=== PATIENT | female | born 1940 | race Caucasian/White ===

== ENCOUNTER 2018-05-31 12:12 | Inpatient (IN) ==
[2018-05-31] MEDS ORDERED: Ipratropium/Albuterol Neb 3 ML IH ONE (12:42)
[2018-05-31] MEDS ORDERED: predniSONE 20 MG TABLET PO ONE (12:42)
[2018-05-31] MEDS ORDERED: Albuterol 2.5 MG/3 ML NEBULIZER IH ONE (12:42)
[2018-05-31] MEDS ORDERED: Isovue-370 500 ML INFUS..BTL IV ONE (12:43)
--- NOTE | 2018-05-31 12:52 | Emergency Department Note ---
Disposition Clinical Impression: Elevated troponin, Pulmonary artery hypertension Traumatic compression fracture of T8 thoracic vertebra Qualifiers: Encounter type: initial encounter Fracture type: closed Qualified Code(s): S22.060A - Wedge compression fracture of T7-T8 vertebra, initial encounter for closed fracture COPD (chronic obstructive pulmonary disease) Qualifiers: COPD type: emphysema Emphysema type: centrilobular Qualified Code(s): J43.2 - Centrilobular emphysema Disposition: Admitted As Inpatient Condition: Fair Referrals: Louie Gray MD [Primary Care Provider] - Forms: ED Satisfaction Letter, Work/School Release Time of Disposition: 15:52 General Adult HPI - General Chief complaint: ED General Medical Stated complaint: fatigue Time Seen by Provider: 05/31/18 12:24 Source: patient Mode of arrival: ambulatory Limitations: no limitations - History of Present Illness HPI Narrative: This is a 77-year-old female with a long history of smoking but no diagnosis of COPD who comes to the emergency department stating that she has felt weak and has had a persistent nonproductive cough for the last 4 weeks. She has been evaluated at other hospitals, and most recently was admitted for left lower lobe pneumonia. In spite of 3 courses of antibiotics, she has not improved. She states that she has temporary relief of dyspnea on exertion after use of al buterol. Pain Scale: 0 - Related Data Allergies Allergy/AdvReac Type Severity Reaction Status Date / Time No Known Allergies Allergy Verified 05/31/18 12:20 All systems ED: reviewed and negative except as stated. Constitutional: Reports: weakness Cardiovascular: Reports: dyspnea on exertion Respiratory: Reports: cough Past Medical History - Past Medical History Medical history: Reports: hypertension Psychiatric history: Reports: no psych history - Social History Smoking Status: Current every day smoker Alcohol use: Reports: none Drug use: Reports: none Physical Exam - General Limitations: no limitations General appearance: alert, in no apparent distress - Head Head exam: atraumatic, normocephalic, normal inspection - Eye Eye exam: Present: normal appearance, PERRL, EOMI - Chest Chest inspection: Present: normal inspection, symmetric chest wall rise - Respiratory Respiratory exam: Present: other (There are clear apical breath sounds with diminished bibasilar breath sounds). Absent: respiratory distress, wheezes - Cardiovascular Cardiovascular exam: Present: regular rate, normal rhythm, normal heart sounds - Abdominal Exam Abdominal exam: Present: soft, Non-Tender. Absent: tenderness, distention, guar ding, rebound, rigidity - Extremities Exam Extremities exam: Present: normal inspection, full ROM. Absent: tenderness, pedal edema - Neurological Exam Neurological exam: Present: alert, oriented X3, CN II-XII intact. Absent: motor sensory deficit - Psychiatric Psychiatric exam: Present: normal affect, normal mood - Skin Skin exam: Present: warm, dry, intact, normal color Course Course Narrative: This is a 77-year-old female with generalized weakness and a persistent cough. She was previously diagnosed with a left lower lobe pneumonia, I am concerned for more serious etiology of her illness. Vital Signs Temperature 97.7 F 05/31/18 12:14 Respiratory Rate 18 05/31/18 12:14 Blood Pressure 89/60 05/31/18 12:14 Temperature 97.7 F 05/31/18 12:26 Pulse Rate 85 05/31/18 15:03 Respiratory Rate 18 05/31/18 15:03 Blood Pressure 138/91 05/31/18 15:03 O2 Sat by Pulse Oximetry 99 05/31/18 15:03 Oxygen Delivery Oxygen Delivery Nasal Cannula Medical Decision Making - [facility] Narrative Medical decision making narrative: This is a 77-year-old female with multiple problems on her evaluation, including troponin elevation appropriate for continued evaluation, renal insufficiency, subacute to acute T8 compression fracture, COPD, bilateral aspiration pneumonia, and pulmonary artery hypertension. Ampicillin/sulbactam was ordered for treatment of aspiration pneumonia, along with IV fluid Bronchodilators and prednisone were given for COPD I discussed her case with the on-call hospitalist, who accepted her for admission. - Lab Data Lab results reviewed: Yes I reviewed the patient's lab results. Lab results narrative: CBC was unremarkable BMP showed hyponatremia at 132 and creatinine elevated at 2.08 Lactate was elevated at 3.0 Troponin was elevated at 0.19 Result diagrams: 05/31/18 12:49 05/31/18 12:49 Lab Results 05/31/18 05/31/18 05/31/18 Range/Units 12:49 12:49 12:49 WBC 10.0 (4.3-11.1) K/mcL RBC 3.44 L (3.82-4.97) M/mcL Hgb 11.5 (11.5-15.4) g/dL Hct 35.8 (35.3-44.9) % MCV 104.1 H (83.0-100.0) fL MCH 33.4 H (28.0-33.3) pg MCHC 32.1 (31.6-35.5) g/dL RDW 14.7 H (11.5-14.5) % Plt Count 356 (140-400) K/mcL MPV 9.0 L (9.4-12.4) fL Immature Gran % 0.5 (0-4) % Seg Neutrophils % 80.2 % Lymphocytes % 11.5 % Monocytes % 6.0 % Eosinophils % 1.5 % Basophils % 0.3 % Neutrophils # 8.0 (1.6-8.9) K/mcL Lymphocytes # 1.2 (0.6-4.6) K/mcL Monocytes # 0.6 (0.0-1.3) K/mcL Eosinophils # 0.2 (0.0-0.6) K/mcL Basophils # 0.0 (0.0-0.2) K/mcL Sodium 132 L (136-145) mEq/L Potassium 4.0 (3.5-5.1) mEq/L Chloride 95 L (98-107) mEq/L Carbon Dioxide 24 (23-29) mEq/L BUN 22 (8-23) mg/dL Creatinine 2.08 H (0.60-1.20) mg/dL Est GFR ( Amer) 28 L (> 60) Est GFR (Non-Af Amer) 23 L (> 60) BUN/Creatinine Ratio 11 (6-26) Glucose 130 H (70-105) mg/dL Calculated Osmolality 279 L (280-300) Lactic Acid 3.0 H (0.5-2.2) mmol/L Calcium 8.9 (8.6-10.3) mg/dL Troponin I 0.19 H* (< 0.04) ng/mL - Radiology Data Radiology results reviewed: Yes I reviewed the patient's radiology results. CT chest was interpreted as showing mid esophageal distention, mild COPD, bibasilar opacities with possible aspiration pneumonia, severe pulmonary artery hypertension, subtle T6 but moderate T8 vertebral compression fractures - EKG Data EKG #1 EKG attestation: Yes I reviewed and interpreted this EKG. EKG results narrative: ECG shows sinus rhythm, 88 bpm, normal intervals, normal axis, normal ST segments, T-wave inversions in 3 and V3 Critical Care Time Critical Care Time: Yes Total Critical Care Time: 30 Attestation: 30 minutes of critical care time was invested independent of other separately billable procedures
[2018-05-31 13:09] LABS: Basophils % 0.3 %; Eosinophils # 0.2 K/mcL (0.0-0.6); Eosinophils % 1.5 %; Hematocrit 35.8 % (35.3-44.9); Hemoglobin 11.5 g/dL (11.5-15.4); Immature Granulocytes % 0.5 % (0-4); Lymphocytes # 1.2 K/mcL (0.6-4.6); Lymphocytes % 11.5 %; Mean Corpuscular HGB Conc 32.1 g/dL (31.6-35.5); Mean Corpuscular Hemoglobin 33.4 pg (28.0-33.3); Mean Corpuscular Volume 104.1 fL (83.0-100.0); Monocytes # 0.6 K/mcL (0.0-1.3); Platelet Count 356 K/mcL (140-400); Red Blood Count 3.44 M/mcL (3.82-4.97); Red Cell Distribution Width 14.7 % (11.5-14.5); Segmented Neutrophils % 80.2 %
[2018-05-31 13:31] LABS: Calcium 8.9 mg/dL (8.6-10.3)
[2018-05-31 13:36] LABS: Troponin I 0.19 ng/mL (< 0.04)
[2018-05-31] MEDS ORDERED: *HR* FentaNYL (PF) 100 MCG/2 ML VIAL IVP ONE (14:49)
[2018-05-31] MEDS ORDERED: Aspirin 325 MG TABLET PO ONE (14:49)
[2018-05-31] MEDS ORDERED: 0.9 % Sodium Chloride 1,000 ML IVC ONE (15:28)
[2018-05-31] MEDS ORDERED: Ampicillin/Sulbactam 1,500 MG in 0.9 % Sodium Chloride Mini Bag 100 ML IVPB ONE (15:29)
[2018-05-31] MEDS ORDERED: Naloxone 0.4 MG/ML INJ IVP PRN (16:39)
[2018-05-31] MEDS ORDERED: Ipratropium/Albuterol Neb 3 ML IH PRN (16:45)
--- NOTE | 2018-05-31 17:31 | Internal Med History&Physical ---
Date of Encounter: 05/31/18 Time of Encounter: 16:00 Internal Medicine - H&P: HPI Chief complaint: Dizziness and fall Admitted From: Home Plans for Post Hospital Care: Home History of present illness: Ms. Tierney is a 77 year old female present to ER for dizziness and fall at home. PMH is significant for HTN, CKD, tabacco abuse. Pt has recent frequent falls. She broken her left arm about 40 days ago and is on sling fixation. Her BP is up and down and sometimes up to over 200 and sometimes low to 60s. This morning pt feels dizziness, weakness and fall again. Pt's daughter checked BP which shows 66/57, HR 104. Pt denies LOC, state hit head slightly. Denies chest pain, nausea/vomiting, or diaphoresis. Pt has SOB at that time but denies SOB when I saw her in ER. Pt denies recent diarrhea or urination symptoms. Pt was treated as [facility] for pneumonia about 1 and half weeks ago, has chronic cough. Pt has chronic esophageal spasm and dysphagia. In the ER, pt had CT chest, which shows chronic aspiration pneumonia, esophageal dilation, and T8 compression fracture. Pt also has elevated troponin and lactate. She was admitted for further management. Past Med Surg Social Fam HX - Past Medical History Medical history: hypertension Psychiatric history: no psych history - Past Surgical History Additional surgical history: back surgery x3 - Social History Smoking Status: Current every day smoker Alcohol use: none Drug use: none - Family History Mother History Unknown: Yes Internal Medicine - H&P: Meds Allergy/AdvReac Type Severity Reaction Status Date / Time No Known Allergies Allergy Verified 05/31/18 12:20 All Systems PM: A 10-system review of systems was performed and is negative for pertinent findings except as documented above in the HPI. - Constitutional Vitals: Temp Pulse Resp BP Pulse Ox 97.7 F 81 20 159/101 91 05/31/18 12:26 05/31/18 16:31 05/31/18 16:31 05/31/18 16:31 05/31/18 16:31 General appearance: Present: A&O X 3, no acute distress, answers questions appropriately Exam: in NAD - Head Head exam: Present: atraumatic, normocephalic - Eye Eye exam: Present: PERRL, conjuntiva pink, sclera anicteric Pupils: Present: PERRL - Neck Neck exam general surgery: Present: supple, trachea midline. Absent: lymphadenopathy - Respiratory Respiratory exam: Present: CTAB, wheezes (Trace wheezes on right lung base). Absent: accessory muscle use, rales, rhonchi - Cardiovascular Cardiovascular exam: Present: RRR, +S1, +S2. Absent: diastolic murmur, gallop, rubs, systolic murmur - GI/Abdominal GI/Abdominal exam: Present: normal bowel sounds, soft, no peritoneal signs. Absent: distended, tenderness - Extremities Exam Extremities exam: Present: warm, radial pulses palpable and symmetrical. Absent: calf tenderness, cyanotic, pedal edema Additional comments: Left arm on sling fixation. - Neurological Exam Neurological exam: Present: CN II-XII intact, oriented X3, no focal deficits. Absent: pronater drift, facial droop, speech deficit - Skin Skin exam: Present: dry, intact Internal Med - H&P Results - Labs CBC & Chem 7: 05/31/18 12:49 05/31/18 12:49 Labs: Short CBC 05/31/18 Range/Units 12:49 WBC 10.0 (4.3-11.1) K/mcL Hgb 11.5 (11.5-15.4) g/dL Hct 35.8 (35.3-44.9) % Plt Count 356 (140-400) K/mcL Neutrophils # 8.0 (1.6-8.9) K/mcL BMP 05/31/18 12:49 Sodium 132 L Potassium 4.0 Chloride 95 L Carbon Dioxide 24 BUN 22 Creatinine 2.08 H Glucose 130 H Calcium 8.9 Cardiac Enzymes 05/31/18 Range/Units 12:49 Troponin I 0.19 H* (< 0.04) ng/mL - Impressions ITS Impressions Chest CT 05/31/18 12:43 IMPRESSION: 1. Nonspecific distention of the proximal to mid esophagus which could relate to dysmotility or possible nonvisualized mid esophageal stricture. This could be further evaluated barium esophagram. 2. Mild COPD with basilar predominant significant chronic bronchitis and mild bronchiectasis. Bibasilar opacities which may represent chronic aspiration pneumonitis with developing fibrosis. 3. Severe pulmonary artery hypertension. 4. Aortic and coronary atherosclerosis. 5. Indeterminate 3 mm ground-glass nodule of the right upper lobe, see recommendations. 6. Subtle T6 and moderate T8 vertebral compression fractures which may be acute versus subacute in nature. The T8 body demonstrates 2 mm posterior cortical displacement with no significant canal stenosis. 7. At the posterior midline aspect of the T10 vertebral body there is an ossified body which may relate to calcification of a disc extrusion. This results in mild canal stenosis. RECOMMENDATIONS: Fleischner Society guidelines for follow-up and management of incidentally detected subsolid pulmonary nodules: Solitary ground glass nodule < 6 mm - No routine follow-up. > than or equal to 6 mm - CT at 6-12 months to confirm persistence, then CT every 2 years until 5 years. - Low risk patients include individuals with minimal or absent history of smoking and other known risk factors. - High risk patients include individuals with a history or smoking or known risk factors. Radiology 2017 http://pubs.rsna.org/doi/full/10.1148/radiol.[email or web address] D/ / 05/31/2018 14:37:58 Heath Monroy MD / carl Interpreting Provider: Heath Monroy MD - Assessment and plan (1) Aspiration pneumonia Current Visit: Yes Status: Acute Assessment and plan: CT shows chronic aspiration pneumonia. Possibly due to dysphagia. - Keep NPO at this point. IVF to maintain hydration. - Swallow evaluation, may need barium swallow test. - Cont unasyn at this point. May consider switch to po abx if blood culture negative. Qualifiers: Aspiration pneumonia type: unspecified Laterality: bilateral Lung location: unspecified part of lung Qualified Code(s): J69.0 - Pneumonitis due to inhalation of food and vomit (2) Dysphagia Current Visit: Yes Status: Acute Assessment and plan: Pt may have esophageal stenosis. Will have swallow evaluation and consult GI in AM. Qualifiers: Dysphagia type: esophageal phase Qualified Code(s): R13.10 - Dysphagia, unspecified (3) Near syncope Current Visit: Yes Status: Acute Assessment and plan: Pt has near syncope with low BP. CT chest suspect PAH. - Cont cardiac monitoring. - Echo, duplex carotid - Orthostatic vitals - Hold all HTN meds at this point, hydralazine iv PRN. (4) CKD (chronic kidney disease) Current Visit: Yes Status: Acute Assessment and plan: No old chart to show the baseline. CR 2.08, avoid nephrotoxic medications, closely monitor renal function. Qualifiers: Chronic kidney disease stage: stage 3 (moderate) Qualified Code(s): N18.3 - Chronic kidney disease, stage 3 (moderate) (5) Elevated lactic acid level Current Visit: Yes Status: Acute Assessment and plan: Pt has nosigns of sepsis, no fever or leukocytosis, no tachycardia. On unasyn for aspiration pneumonia now. - Cont IVF - Repeat lactate in 6 hours. (6) COPD (chronic obstructive pulmonary disease) Current Visit: Yes Status: Acute Assessment and plan: CT chest shows COPD, pt denies hx of COPD, long time smoker. - Has trace wheezes on right side. - Place pt on Duoneb scheduled and PRN Qualifiers: COPD type: emphysema Emphysema type: unspecified Qualified Code(s): J43.9 - Emphysema, unspecified (7) Elevated troponin Current Visit: Yes Status: Acute Assessment and plan: Denies chest pain, has CKD, possibly demend ischemia. - Cont cardiac monitoring. - Track 3 sets of troponin - Consult cardio for further management. (8) Pulmonary artery hypertension Current Visit: Yes Status: Acute Assessment and plan: Per CT chest, will check Echo. (9) Traumatic compression fracture of T8 thoracic vertebra Current Visit: Yes Status: Acute Assessment and plan: Pt denies significant pain, will consult ortho/spinal surgery. Qualifiers: Encounter type: initial encounter Fracture type: closed Qualified Code(s): S22.060A - Wedge compression fracture of T7-T8 vertebra, initial encounter for closed fracture (10) Tobacco abuse Current Visit: Yes Status: Acute Assessment and plan: Smoking cessation education done. Pt refuse nicotine patch. (11) DVT prophylaxis Current Visit: Yes Status: Acute Assessment and plan: Heparin SC (12) Fall Current Visit: Yes Status: Acute Assessment and plan: Seems due to near syncope. - Syncope workup as above - CT head and neck stat as ER physician didn't do them in ER - XR of left arm to r/o new fracture/displacement. Qualifiers: Encounter type: initial encounter Qualified Code(s): W19.XXXA - Unspecified fall, initial encounter - Time Spent With Patient Total time spent is greater than 50% in coordination of care (as documented) at patient's floor/unit and/or counseling patient: 30 min 25 - 35 minutes
[2018-05-31] MEDS: 0.9 % Sodium Chloride 1,000 ML IVC SCH (18:51)
[2018-05-31] MEDS: *HR* Heparin 5,000 UNIT/ML VIAL SQ SCH (20:20)
--- NOTE | 2018-05-31 20:35 | Event Note ---
Date of Encounter: 05/31/18 Time of Encounter: 20:30 Alerted by pts. Admitting physician, Dr. Solorio, of pts. fall today resulting in pt. striking her head w/recommendation to await results of head CT to assess for any possible intracranial bleeding or abnormality. CT of the head shows no acute intracranial abnormality and no acute cervical spine fracture. X-ray of the left humerus shows left proximal humerus fracture with separation of fracture fragments and no acute osseous abnormality of the left elbow. Pt. and VS to be monitored closely for signs of pain, tachycardia, tachypnea, HTN overnight. Will order interventions as warranted.
[2018-05-31] MEDS ORDERED: Ampicillin/Sulbactam 1,500 MG in 0.9 % Sodium Chloride Mini Bag 100 ML IVPB SCH (22:00)
[2018-05-31] MEDS: Ipratropium/Albuterol Neb 3 ML IH SCH (22:16)
[2018-06-01 01:30] LABS: Basophils % 0.1 %; Hematocrit 32.1 % (35.3-44.9); Hemoglobin 10.5 g/dL (11.5-15.4); Immature Granulocytes % 0.3 % (0-4); Lymphocytes # 0.8 K/mcL (0.6-4.6); Lymphocytes % 11.2 %; Mean Corpuscular HGB Conc 32.7 g/dL (31.6-35.5); Mean Corpuscular Hemoglobin 33.7 pg (28.0-33.3); Mean Corpuscular Volume 102.9 fL (83.0-100.0); Mean Platelet Volume 8.8 fL (9.4-12.4); Monocytes # 0.1 K/mcL (0.0-1.3); Monocytes % 1.6 %; Platelet Count 324 K/mcL (140-400); Red Blood Count 3.12 M/mcL (3.82-4.97); Red Cell Distribution Width 14.5 % (11.5-14.5); Segmented Neutrophils % 86.8 %
[2018-06-01 01:53] LABS: Albumin 3.3 g/dL (3.5-5.7); Albumin/Globulin Ratio 1.2 (1.1-2.2); Bilirubin,Total 0.3 mg/dL (0.3-1.0); Calcium 8.3 mg/dL (8.6-10.3); Chol/HDL Ratio 4.4 (0-4.9); Globulin 2.7 g/dL (2.4-3.5); Phosphorous 4.1 mg/dL (2.7-4.5); Potassium 3.6 mEq/L (3.5-5.1)
[2018-06-01 02:15] LABS: Folate 5.2 ng/mL (3.0-16.0)
[2018-06-01] MEDS: Ipratropium/Albuterol Neb 3 ML IH SCH ×4 (04:30→21:57)
[2018-06-01] MEDS: *HR* Heparin 5,000 UNIT/ML VIAL SQ SCH ×2 (06:01→16:57)
[2018-06-01] MEDS: Ampicillin/Sulbactam 1,500 MG in 0.9 % Sodium Chloride Mini Bag 100 ML IVPB SCH ×2 (06:02→11:17)
--- NOTE | 2018-06-01 08:55 | Pain Management Consultation ---
Date of Encounter: 06/01/18 Time of Encounter: 13:36 Assessment and Plan (1) Traumatic compression fracture of T8 thoracic vertebra Current Visit: Yes Status: Acute The patient experienced a fall from standing yesterday and CT scan shows compression deformity of T6 (mild) and T8 (moderate). Recommend the followin. Oral analgesics. 2. Back bracing with TLSO brace. She can wear the brace when up in bed or out of bed. Does not have to wear it while supine or sleeping. 3. Physical therapy/occupational therapy consult to treat pain and ascertain her functional capacity. If the patient can sit on the side of the bed, eat, and ambulate to the bathroom with little pain, there is little need for surgery at this moment. 3. Recent troponin indicates high likelihood of cardiac event which is a further barrier to surgical care at this point. Based on the overall clinical situation, recommend conservative care as noted in 1-3 above. 3A. The patient herself is also initially against surgical care for the broken bone in her spine. She has underwent several larger lumbar spine procedures. I did explain to her that kyphoplasty is a less invasive surgical procedure in terms of surgical manipulation, but the risks are significant. 4. Recommend discharge to rehabilitation center if function is at baseline and pain can be easily controlled with oral analgesics and lifestyle modification, finding a comfortable position. 5. I will have my office add her on to my clinic schedule for follow-up in one to two weeks so that we can monitor her progress. The assessment and plan as outlined above was discussed with the patient and/or family members who expressed understanding and agreement. All questions were answered. Qualifiers: Encounter type: initial encounter Fracture type: closed Qualified Code(s): S22.060A - Wedge compression fracture of T7-T8 vertebra, initial encounter for closed fracture History of Present Illness Chief complaint: back pain HPI: Ms. Tierney is a 77 year old female who experienced a recent fall from standing where she fell backwards and hit her middle back on a hard surface. Since the fall a little over 24 hours ago, the patient has experienced for the first time pain in her middle back between her shoulder blades. She describes the pain as a "sore" sensation that occurs mostly when changing positions. She denies any pain traveling into the front of her chest or into her abdomen or legs. She is able to sleep and drink normally. She is able to cough without pain. She has a history of 3 low back surgeries culminating in lumbar spine fusion. Therefore, she typically has low back pain involving traveling pain into the back sides of both legs. She describes that there is no new pain traveling into her legs at this moment. Past Med Surg Social Fam HX - Past Medical History Medical history: hypertension Additional medical history: Diverticulitis, dysphagia Psychiatric history: no psych history - Past Surgical History Surgical History: cholecystectomy, hysterectomy Additional surgical history: back surgery x3 - Social History Smoking Status: Current every day smoker Packs per day: 1.5 Alcohol use: none Drug use: none - Family History Mother History Unknown: Yes Living Status: Age at : 80 Cause of : CHF Hx Family Cardiac Disorders: Yes (CHF) Father History Unknown: Yes Living Status: Age at : 73 Cause of : CVA Medications and Allergies Amitriptyline [Elavil] 50 mg PO BID 06/01/18 [History] Atenolol [Tenormin] 50 mg PO DAILY 06/01/18 [History] Carvedilol [Coreg] 25 mg PO DAILY 06/01/18 [History] Ferrous Sulfate 325 mg PO BID 06/01/18 [History] Furosemide [Lasix] 40 mg PO DAILY 06/01/18 [History] Gabapentin [Neurontin] 300 mg PO TID 06/01/18 [History] Minocycline HCl 100 mg PO DAILY 06/01/18 [History] Tamsulosin [Flomax] 0.4 mg PO DAILY 06/01/18 [History] Tramadol HCl [Ultram] 50 mg PO Q4H PRN 06/01/18 [History] diazePAM [Valium] 10 mg PO QID 06/01/18 [History] Allergy/AdvReac Type Severity Reaction Status Date / Time No Known Allergies Allergy Verified 05/31/18 12:20 Review of Systems - Constitutional Constitutional ROS IM: no photophobia, no phonophobia, no daytime sleepiness, no fever(s), no stops breathing during sleep - EENT Nose, mouth and throat: no headache(s), no neck pain, no neck trauma - Cardiovascular Cardiovascular ROS: no chest pain, no leg edema, no lightheadedness - Respiratory Respiratory: no pain on inspiration, no pain with cough - Gastrointestinal Gastrointestinal: no abdominal pain, no constipation, no diarrhea, no heartburn - Genitourinary Genitourinary ROS: no difficulty urinating, no flank pain, no urinary hesitancy - Musculoskeletal Musculoskeletal ROS: no muscle weakness, no numbness, no radiating pain into limb, no tingling - Integumentary Integumentary: no erythema, no lesions, no swelling - Neurological Neurological ROS: no abnormal gait, no behavioral changes, no focal weakness, no radicular pain - Psychiatric Psychiatric general: no anxiety, no confusion, no depression - Hematologic/Lymphatic Hematologic/Lymphatic pediatric: no easy bleeding, no easy bruising Physical Exam Initial Vital Signs Temp Resp BP 97.7 F 18 89/60 05/31/18 12:14 05/31/18 12:14 05/31/18 12:14 - Additional Findings EYES:: pupils equal and round, no myosis. SKIN:: Thin skin with areas of ecchymosis CARDIOVASCULAR:: Generalized edema noted in both lower limbs distal to both knees. PULMONARY:: Large airway rhonchi GASTROINTESTINAL:: soft. MUSCULOSKELETAL INSPECTION:: no surgical scarring in thoracic area. There is a well-healed vertical midline incision over the lower lumbar neuraxis. Mild tenderness with palpation of spinous processes in the upper thoracic spine. Mild tenderness increases with percussion of this area. PALPATION:: paraspinous musculature is not tender to deep palpation in the lumbar area bilaterally. NEUROLOGIC SENSATION:: hypesthesia is not noted in lower extremity dermatomes. PSYCHIATRIC:: ORIENTATION:: awake and alert. INSIGHT:: good awareness of illness. AFFECT:: pleasant. Radiology Images Viewed By Me:: 05.31.18 CT chest shows subtle T6 and mild T8 compression fractures. There is a calcified disc protrusion with inferior migration in the midthoracic anterior epidural space. Lab Data:: Troponin I positive yesterday and today. WBC within normal range. Platelets within normal range. Radiology Reports:: 05/31/2018 x-ray of the left humerus shows a displaced fracture. I have reviewed and agree with information documented in the scribed documentation, ROS, patient medications, allergies, medical history, surgical history, social history, and family history. Results - Labs 06/01/18 01:11 06/01/18 01:11 Abnormal lab results RBC 3.12 M/mcL (3.82-4.97) L 06/01/18 01:11 Hgb 10.5 g/dL (11.5-15.4) L 06/01/18 01:11 Hct 32.1 % (35.3-44.9) L 06/01/18 01:11 MCV 102.9 fL (83.0-100.0) H 06/01/18 01:11 MCH 33.7 pg (28.0-33.3) H 06/01/18 01:11 MPV 8.8 fL (9.4-12.4) L 06/01/18 01:11 Sodium 135 mEq/L (136-145) L 06/01/18 01:11 Creatinine 1.38 mg/dL (0.60-1.20) H 06/01/18 01:11 Est GFR ( Amer) 45 (> 60) L 06/01/18 01:11 Est GFR (Non-Af Amer) 37 (> 60) L 06/01/18 01:11 Glucose 127 mg/dL (70-105) H 06/01/18 01:11 POC Glucose 138 mg/dL (70-99) H 06/01/18 01:10 Calcium 8.3 mg/dL (8.6-10.3) L 06/01/18 01:11 Alkaline Phosphatase 114 Units/L (34-104) H 06/01/18 01:11 Troponin I 0.13 ng/mL (< 0.04) H* 06/01/18 01:11 B-Natriuretic Peptide 921 pg/mL (Less than 100) H 06/01/18 01:11 Serum Total Protein 6.0 g/dL (6.4-8.9) L 06/01/18 01:11 Albumin 3.3 g/dL (3.5-5.7) L 06/01/18 01:11 HDL Cholesterol 29 mg/dL (40-59) L 06/01/18 01:11 Diabetes panel 05/31/18 06/01/18 Range/Units 12:49 01:11 Sodium 132 L 135 L (136-145) mEq/L Potassium 4.0 3.6 (3.5-5.1) mEq/L Chloride 95 L 100 (98-107) mEq/L Carbon Dioxide 24 26 (23-29) mEq/L BUN 22 18 (8-23) mg/dL Creatinine 2.08 H 1.38 H (0.60-1.20) mg/dL Glucose 130 H 127 H (70-105) mg/dL Calcium 8.9 8.3 L (8.6-10.3) mg/dL AST 15 (13-39) Units/L ALT 7 (7-52) Units/L Alkaline Phosphatase 114 H (34-104) Units/L Albumin 3.3 L (3.5-5.7) g/dL Triglycerides 90 (< 150) mg/dL HDL Cholesterol 29 L (40-59) mg/dL Calcium panel 05/31/18 06/01/18 Range/Units 12:49 01:11 Calcium 8.9 8.3 L (8.6-10.3) mg/dL Phosphorus 4.1 (2.7-4.5) mg/dL Albumin 3.3 L (3.5-5.7) g/dL Pituitary panel 05/31/18 06/01/18 Range/Units 12:49 01:11 Sodium 132 L 135 L (136-145) mEq/L Potassium 4.0 3.6 (3.5-5.1) mEq/L Chloride 95 L 100 (98-107) mEq/L Carbon Dioxide 24 26 (23-29) mEq/L BUN 22 18 (8-23) mg/dL Creatinine 2.08 H 1.38 H (0.60-1.20) mg/dL Glucose 130 H 127 H (70-105) mg/dL Calcium 8.9 8.3 L (8.6-10.3) mg/dL Adrenal panel 05/31/18 06/01/18 Range/Units 12:49 01:11 Sodium 132 L 135 L (136-145) mEq/L Potassium 4.0 3.6 (3.5-5.1) mEq/L Chloride 95 L 100 (98-107) mEq/L Carbon Dioxide 24 26 (23-29) mEq/L BUN 22 18 (8-23) mg/dL Creatinine 2.08 H 1.38 H (0.60-1.20) mg/dL Glucose 130 H 127 H (70-105) mg/dL Calcium 8.9 8.3 L (8.6-10.3) mg/dL Total Bilirubin 0.3 (0.3-1.0) mg/dL AST 15 (13-39) Units/L ALT 7 (7-52) Units/L Alkaline Phosphatase 114 H (34-104) Units/L Albumin 3.3 L (3.5-5.7) g/dL All other labs normal. Consult Discharge Plan - Plan Referrals: Louie Gray MD [Primary Care Provider] -
[2018-06-01] MEDS: 0.9 % Sodium Chloride 1,000 ML IVC SCH (09:30)
--- NOTE | 2018-06-01 10:17 | Cardiology Consult Note ---
<Ebony Maldonado - Last Filed: 06/01/18 10:57> Date of Encounter: 06/01/18 Time of Encounter: 10:00 Assessment and Plan (1) Near syncope Current Visit: Yes Status: Acute Multiple episodes of near syncope with falls over the past 6-8 weeks. Etiology unclear. Reports initial episode occurred with severely elevated HTN, now with hypotension. BP reportedly 66/57 prior to presentation, initial BP in ED 89/60. CT Chest: esophageal stricture vs. dysmotility; mild COPD, chronic bronchitis, severe PAH, and acute vs. subacute vertebral fx. No arrhythmias noted on telemetry since admission. Check TSH. Agree with IVF, symptoms largely improved. Appears blood pressure now elevated; of note, recent medication change (atenolol--->coreg) at [facility]. Will restart low dose coreg now; closely monitor BP response. Obtain records from [place] including TTE, NST, d/c summary. (2) Elevated troponin Current Visit: Yes Status: Acute Mildly elevated troponin in the setting of near syncope, DELMIS on CKD. Do not suspect ACS. No chest pain. Add low dose BB, asa. Awaiting TTE records. (3) Pulmonary artery hypertension Current Visit: Yes Status: Acute Described on CT of chest. Recent TTE at [facility]; recommend obtaining records now. Will hold off on repeating inpt TTE until results obtained from [place]; order cancelled. (4) CKD (chronic kidney disease) Current Visit: Yes Status: Acute Reported hx of CKD Presented with DELMIS; likely secondary to hypotension. SCr improving, consider Nephrology consult. Discussion w patient/family: The assessment and plan as outlined above was discussed with the patient and/or family members who expressed understanding and agreement. All questions were answered. Thank you for involving us in the care of your patient. Please call with any questions. The patient will be discussed and reviewed with Dr. Gaviria; changes to be made accordingly. History of Present Illness Consult date: 06/01/18 Requesting physician: Humble Thomas Consult reason: Elevated troponin Chief complaint: Dizziness, fall History of present illness: Ms. Tierney is a 77 year old female with PMHx significant for tobacco use, CKD, and tobacco abuse who presented to the ED after fall; patient reports generalized weakness which led to fall. Denies loss of consciousness. She does report dizziness prior to event with low blood pressure over the past 24 hours prior to presentation. Of note, recent fall with left arm fracture, then another fall with admission; at that time, patient reports blood pressure medications were adjusted--atenolol was discontinued and she was then started on Coreg 12.5 mg BID. Blood pressures appear to be labile this admission. Reports holding x2 doses of coreg prior to ED presentation. Of note, patient reports recent normal NST and echocardiogram. Past Med Surg Social Fam HX - Past Medical History Attestation: Yes The following information was validated with the patient. Source: patient Medical history: hypertension Additional medical history: Diverticulitis, dysphagia Psychiatric history: no psych history - Past Surgical History Surgical History: cholecystectomy, hysterectomy Additional surgical history: back surgery x3 - Social History Smoking Status: Current every day smoker Packs per day: 1.5 Alcohol use: none Drug use: none - Family History Mother History Unknown: Yes Living Status: Age at : 80 Cause of : CHF Hx Family Cardiac Disorders: Yes (CHF) Father History Unknown: Yes Living Status: Age at : 73 Cause of : CVA Medications and Allergies Amitriptyline [Elavil] 50 mg PO BID 06/01/18 [History] Carvedilol [Coreg] 12.5 mg PO BID 06/01/18 [History] Ferrous Sulfate 325 mg PO BID 06/01/18 [History] Furosemide [Lasix] 40 mg PO DAILY 06/01/18 [History] Gabapentin [Neurontin] 300 mg PO TID 06/01/18 [History] Minocycline HCl 100 mg PO DAILY 06/01/18 [History] Tamsulosin [Flomax] 0.4 mg PO DAILY 06/01/18 [History] Tramadol HCl [Ultram] 50 mg PO BID PRN 06/01/18 [History] diazePAM [Valium] 5 - 10 mg PO TID PRN 06/01/18 [History] Allergy/AdvReac Type Severity Reaction Status Date / Time No Known Allergies Allergy Verified 05/31/18 12:20 All Systems Review: The remainder of the systems were reviewed and are negative - Cardiovascular Cardiovascular: as per HPI Physical Examination Vital Signs, Last 4 Hours Temp Pulse Resp BP Pulse Ox 06/01/18 09:25 94 06/01/18 06:47 97.6 F 82 19 148/74 94 General: Conversant, No Apparent Distress HEENT: Atraumatic, Normocephaly, Mucus Membranes Moist Neck: No JVD, Normal carotid pulses Cardiac: Reg Rate and Rhythm, Normal S1 and S2, No Murmur Lungs: Normal Breath Sounds, No Wheeze, Rales, Rhonchi Neuro: Alert and responsive, No focal deficits noted Abdomen: Soft, Non-Tender Skin: No rashes noted on visualized skin Musculoskeletal: No Chest Wall Tenderness Extremities: No Clubbing, No Cyanosis, No Edema, Normal Pulses Results 06/01/18 01:11 06/01/18 01:11 Lab Results 05/31/18 05/31/18 05/31/18 12:49 12:49 19:22 WBC 10.0 Hgb 11.5 Hct 35.8 Plt Count 356 Sodium 132 L Potassium 4.0 Chloride 95 L Carbon Dioxide 24 BUN 22 Creatinine 2.08 H Glucose 130 H Calcium 8.9 Magnesium Total Bilirubin AST ALT Alkaline Phosphatase Troponin I 0.19 H* 0.16 H* B-Natriuretic Peptide 06/01/18 06/01/18 06/01/18 01:11 01:11 01:11 WBC 6.9 Hgb 10.5 L Hct 32.1 L Plt Count 324 Sodium 135 L Potassium 3.6 Chloride 100 Carbon Dioxide 26 BUN 18 Creatinine 1.38 H Glucose 127 H Calcium 8.3 L Magnesium 2.0 Total Bilirubin 0.3 AST 15 ALT 7 Alkaline Phosphatase 114 H Troponin I 0.13 H* B-Natriuretic Peptide 06/01/18 01:11 WBC Hgb Hct Plt Count Sodium Potassium Chloride Carbon Dioxide BUN Creatinine Glucose Calcium Magnesium Total Bilirubin AST ALT Alkaline Phosphatase Troponin I B-Natriuretic Peptide 921 H Active Medications Acetaminophen (Tylenol) 650 mg PO Q6HR PRN PRN Reason: Mild Pain/Fever Stop: 11/30/18 16:40 Albuterol/Ipratropium (Duoneb) 3 ml IH [id number] SUZIE Stop: 11/30/18 22:01 Last Admin: 06/01/18 04:30 Dose: 3 ml Albuterol/Ipratropium (Duoneb) 3 ml IH [id number] PRN PRN Reason: Shortness Of Breath/Wheezing Stop: 11/30/18 16:46 Heparin Sodium (Porcine) (Heparin) 5,000 unit SQ Q12HCO SUZIE Stop: 11/30/18 18:01 Last Admin: 06/01/18 06:01 Dose: 5,000 unit Hydralazine HCl (Hydralazine) 5 mg IVP Q6HR PRN PRN Reason: Hypertension Stop: 11/30/18 17:46 Last Admin: 05/31/18 18:51 Dose: 5 mg Sodium Chloride (0.9 % Sodium Chloride) 1,000 mls @ 80 mls/hr IVC .[id number] SUZIE Stop: 06/01/18 17:44 Last Admin: 06/01/18 09:30 Dose: 80 mls/hr Ampicillin Sodium/Sulbactam Sodium 1,500 mg/ Sodium Chloride 100 mls @ 200 mls/hr IVPB Q6H SUZIE Stop: 12/01/18 06:01 Last Infusion: 06/01/18 07:43 Dose: Infused Naloxone HCl (Narcan) 0.4 mg IVP Q2MIN PRN PRN Reason: SEE COMMENTS Stop: 11/30/18 16:40 - Imaging and Cardiology Other Results: 12 hour tele: avg HR=76 SR. No events noted. - EKG Interpretation EKG results cardiology: personally reviewed Consult Discharge Plan - Plan Referrals: Louie Gray MD [Primary Care Provider] - <Teddy Gaviria - Last Filed: 06/01/18 19:04> - Attending Attestation Patient was seen and evaluated independently by me. Findings, assessment and plan were discussed at length with patient, questions answered. Agree with nurse practitioner's documentation. Addition as follows, 77 yo CF ho recent "trip and fall" with LUE fracture, HTN, CKD (? obstructive etiology), COPD. P/w a fall with uncertain near-syncope 6:30am when turning. + arm and back pain. Hypotensive on admission. Chest CT suggests severe PAH. Recent TTE in [facility], f/u Cardiology at [place]. No dynamic ECG changes or event on tele. Trop 0.1-1.2 flat A: mild troponin elevation, type II NSTMI likely hypotensive episodes suspected PAH on CT frequent falls DELMIS on CKD Dysphagia, chronic, EGD pending P: obatain TTE from [facility] will need further w/u if evidence of pumonary hypertension on TTE (eg scleroderma) if arrhythmia on tele, will need event monitor ambulatory BP monitoring Teddy Gaviria MD, PhD Assessment and Plan Discussion w patient/family: The assessment and plan as outlined above was discussed with the patient and/or family members who expressed understanding and agreement. All questions were answered. Thank you for involving us in the care of your patient. Please call with any questions. History of Present Illness History of present illness: Ms. Tierney is a 77 year old female All Systems Review: The remainder of the systems were reviewed and are negative Physical Examination Vital Signs, Last 4 Hours Pulse Pulse Pulse Pulse Resp BP BP 06/01/18 16:15 17 06/01/18 15:42 78 75 82 86 18 171/94 171/94 BP BP Pulse Ox 06/01/18 16:15 94 06/01/18 15:42 168/108 163/132 94 Results 06/01/18 01:11 06/01/18 01:11 Lab Results 05/31/18 06/01/18 06/01/18 19:22 01:11 01:11 WBC 6.9 Hgb 10.5 L Hct 32.1 L Plt Count 324 Sodium Potassium Chloride Carbon Dioxide BUN Creatinine Glucose Calcium Magnesium Total Bilirubin AST ALT Alkaline Phosphatase Troponin I 0.16 H* 0.13 H* B-Natriuretic Peptide TSH 06/01/18 06/01/18 06/01/18 01:11 01:11 13:01 WBC Hgb Hct Plt Count Sodium 135 L Potassium 3.6 Chloride 100 Carbon Dioxide 26 BUN 18 Creatinine 1.38 H Glucose 127 H Calcium 8.3 L Magnesium 2.0 Total Bilirubin 0.3 AST 15 ALT 7 Alkaline Phosphatase 114 H Troponin I B-Natriuretic Peptide 921 H TSH 1.101
--- NOTE | 2018-06-01 10:58 | Gastroenterology Consult Note ---
<Fernando Akins - Last Filed: 06/01/18 10:55> Date of Encounter: 06/01/18 Time of Encounter: 10:30 - Assessment and plan (1) Dysphagia Current Visit: Yes Status: Acute Assessment and plan: Recommend EGD with possible dilation, pending Cardiology workup for her elevated troponin. Patient refuses EGD at this time. Dr. Montes will speak with patient this afternoon. Qualifiers: Dysphagia type: esophageal phase Qualified Code(s): R13.10 - Dysphagia, unspecified (2) Elevated troponin Current Visit: Yes Status: Acute Assessment and plan: Cardiology following. - Time Spent With Patient Total time spent is greater than 50% in coordination of care (as documented) at patient's floor/unit and/or counseling patient: GI History of Present Illness - Data of Consult Patient: new to practice Requesting Physician: Go Wei DO - Consult Narrative Reason for consult: Dysphagia History of present illness: Ms. Tierney is a 77 year old female with PMHx of HTN, CKD, who presented to the ED with c/o dizziness and fall at home. Her BP is up and down and sometimes up to over 200 and sometimes low to 60s. The morning of admission the pt felt dizziness, weakness and fell again. Pt's daughter checked BP 66/57, HR 104. Pt denied LOC, state hit head slightly. Denies chest pain, nausea/vomiting, or diaphoresis. Pt was treated as [facility] for pneumonia about 1 and half weeks ago, has chronic cough. Pt has chronic esophageal spasm and dysphagia, and has had several EGDs completed at [facility]. She states she feels solid food and occasionally medication get stuck in her lower esophagus, which has not worsened or improved over the past "couple of years". In the ER, pt had CT chest, which shows chronic aspiration pneumonia, esophageal dilation, and T8 compression fracture. Hgb on admission was 11.5 and this AM Hgb 10.5. We were consulted to evaluate her dysphagia. Procedures: EGD 3-4 years ago at [facility] showed esophageal spasm per patient report. NSAIDs: None Anticoagulation: None Past Med Surg Social Fam HX - Past Medical History Medical history: hypertension Additional medical history: Diverticulitis, dysphagia Psychiatric history: no psych history - Past Surgical History Surgical History: cholecystectomy, hysterectomy Additional surgical history: back surgery x3 - Social History Smoking Status: Current every day smoker Packs per day: 1.5 Alcohol use: none Drug use: none - Family History Mother History Unknown: Yes Living Status: Age at : 80 Cause of : CHF Hx Family Cardiac Disorders: Yes (CHF) Father History Unknown: Yes Living Status: Age at : 73 Cause of : CVA - Gastrointestinal Gastrointestinal: Present: as per HPI - Constitutional Constitutional: as per HPI - EENT Eyes: as per HPI Ears: Present: as per HPI Nose, mouth and throat: Present: as per HPI - Cardiovascular Cardiovascular ROS: Present: as per HPI - Respiratory Respiratory IM: Present: as per HPI - Genitourinary Genitourinary: Absent: change in color, Urinary frequency - Neurological ROS Neurological GI: Present: as per HPI - Hematologic/Lymphatic Hematologic/Lymphatic pediatric: Present: as per HPI - Musculoskeletal Musculoskeletal ROS GI: Present: as per HPI - Integumentary Integumentary GI: Present: as per HPI - Psychiatric ROS Psychiatric GI: Present: as per HPI - Endocrine Endocrine IM: Present: as per HPI - Constitutional Vitals: Temp Pulse Resp BP Pulse Ox 97.6 F 82 19 148/74 94 06/01/18 06:47 06/01/18 06:47 06/01/18 06:47 06/01/18 06:47 06/01/18 09:25 General appearance: Present: cooperative, A&O X 3, no acute distress, answers questions appropriately - Head Head exam: Present: atraumatic, normocephalic - Eye Eye exam: Present: normal appearance, sclera anicteric - ENT ENT exam: Present: mucous membranes dry - Neck Neck exam general surgery: Present: normal inspection, trachea midline - Respiratory Respiratory exam: Present: decreased breath sounds, CTAB. Absent: rales, rhonchi - Cardiovascular Cardiovascular exam: Present: RRR, +S1, +S2 - GI/Abdominal GI/Abdominal exam: Present: soft, no peritoneal signs. Absent: distended, firm, guarding, tenderness - Rectal Rectal exam: Present: deferred - Extremities Exam Extremities exam: Present: warm - Neurological Exam Neurological exam: Present: no focal deficits - Psychiatric Psychiatric exam: Present: normal affect, normal mood - Skin Skin exam: Present: dry, intact, normal color, warm Results - Labs CBC & Chem 7: 06/01/18 01:11 06/01/18 01:11 Labs: Last Result Calcium 8.3 mg/dL (8.6-10.3) L 06/01/18 01:11 Troponin I 0.13 ng/mL (< 0.04) H* 06/01/18 01:11 Triglycerides 90 mg/dL (< 150) 06/01/18 01:11 Vitamin B12 275 pg/mL (250-1100) 06/01/18 01:11 Folate 5.2 ng/mL (3.0-16.0) 06/01/18 01:11 Entire Visit Hgb 10.5 g/dL (11.5-15.4) L 06/01/18 01:11 Hct 32.1 % (35.3-44.9) L 06/01/18 01:11 Total Bilirubin 0.3 mg/dL (0.3-1.0) 06/01/18 01:11 AST 15 Units/L (13-39) 06/01/18 01:11 ALT 7 Units/L (7-52) 06/01/18 01:11 Folate 5.2 ng/mL (3.0-16.0) 06/01/18 01:11 - Impressions Impressions Chest CT 05/31/18 12:43 IMPRESSION: 1. Nonspecific distention of the proximal to mid esophagus which could relate to dysmotility or possible nonvisualized mid esophageal stricture. This could be further evaluated barium esophagram. 2. Mild COPD with basilar predominant significant chronic bronchitis and mild bronchiectasis. Bibasilar opacities which may represent chronic aspiration pneumonitis with developing fibrosis. 3. Severe pulmonary artery hypertension. 4. Aortic and coronary atherosclerosis. 5. Indeterminate 3 mm ground-glass nodule of the right upper lobe, see recommendations. 6. Subtle T6 and moderate T8 vertebral compression fractures which may be acute versus subacute in nature. The T8 body demonstrates 2 mm posterior cortical displacement with no significant canal stenosis. 7. At the posterior midline aspect of the T10 vertebral body there is an ossified body which may relate to calcification of a disc extrusion. This results in mild canal stenosis. RECOMMENDATIONS: Fleischner Society guidelines for follow-up and management of incidentally detected subsolid pulmonary nodules: Solitary ground glass nodule < 6 mm - No routine follow-up. > than or equal to 6 mm - CT at 6-12 months to confirm persistence, then CT every 2 years until 5 years. - Low risk patients include individuals with minimal or absent history of smoking and other known risk factors. - High risk patients include individuals with a history or smoking or known risk factors. Radiology 2017 http://pubs.rsna.org/doi/full/10.1148/radiol.[email or web address] D/ / 05/31/2018 14:37:58 Heath Monroy MD / carl Interpreting Provider: Heath Monroy MD Cervical Spine CT 05/31/18 18:16 IMPRESSION: No acute intracranial abnormality. No acute cervical spine fracture D/ / Jean Marie Dinero / Jean Marie Dinero Interpreting Provider: Jean Marie Dinero Elbow X-Ray 05/31/18 18:16 IMPRESSION: Left proximal humerus fracture with separation of fracture fragments No acute osseous abnormality of the left elbow D/ / Jean Marie Dinero / Jean Marie Dinero Interpreting Provider: Jean Marie Dinero Head CT 05/31/18 18:16 IMPRESSION: No acute intracranial abnormality. No acute cervical spine fracture D/ / Jean Marie Dinero / Jean Marie Dinero Interpreting Provider: Jean Marie Dinero Humerus X-Ray 05/31/18 18:16 IMPRESSION: Left proximal humerus fracture with separation of fracture fragments No acute osseous abnormality of the left elbow D/ / Jean Marie Dinero / Jean Marie Dinero Interpreting Provider: Jean Marie Dinero Consult Discharge Plan - Plan Referrals: Louie Gray MD [Primary Care Provider] - <Kike Montes - Last Filed: 06/01/18 16:31> Time of Encounter: 15:00 - Time Spent With Patient Total time spent is greater than 50% in coordination of care (as documented) at patient's floor/unit and/or counseling patient: GI History of Present Illness - Data of Consult Requesting Physician: Go Wei DO - Consult Narrative History of present illness: Ms. Tierney is a 77 year old female - Constitutional Vitals: Temp Pulse Resp BP Pulse Ox 97.6 F 75 18 171/94 94 06/01/18 06:47 06/01/18 15:42 06/01/18 15:42 06/01/18 15:42 06/01/18 15:42 Results - Labs CBC & Chem 7: 06/01/18 01:11 06/01/18 01:11 Labs: Last Result Calcium 8.3 mg/dL (8.6-10.3) L 06/01/18 01:11 Troponin I 0.13 ng/mL (< 0.04) H* 06/01/18 01:11 Triglycerides 90 mg/dL (< 150) 06/01/18 01:11 Vitamin B12 275 pg/mL (250-1100) 06/01/18 01:11 Folate 5.2 ng/mL (3.0-16.0) 06/01/18 01:11 Entire Visit Hgb 10.5 g/dL (11.5-15.4) L 06/01/18 01:11 Hct 32.1 % (35.3-44.9) L 06/01/18 01:11 Total Bilirubin 0.3 mg/dL (0.3-1.0) 06/01/18 01:11 AST 15 Units/L (13-39) 06/01/18 01:11 ALT 7 Units/L (7-52) 06/01/18 01:11 Folate 5.2 ng/mL (3.0-16.0) 06/01/18 01:11 - Impressions Impressions Cervical Spine CT 05/31/18 18:16 IMPRESSION: No acute intracranial abnormality. No acute cervical spine fracture D/ / Jean Marie Dinero / Jean Marie Dinero Interpreting Provider: Jean Marie Dinero Elbow X-Ray 05/31/18 18:16 IMPRESSION: Left proximal humerus fracture with separation of fracture fragments No acute osseous abnormality of the left elbow D/ / Jean Marie Dinero / Jean Marie Dinero Interpreting Provider: Jean Marie Dinero Head CT 05/31/18 18:16 IMPRESSION: No acute intracranial abnormality. No acute cervical spine fracture D/ / Jean Marie Dinero / Jean Marie Dinero Interpreting Provider: Jean Marie Dinero Humerus X-Ray 05/31/18 18:16 IMPRESSION: Left proximal humerus fracture with separation of fracture fragments No acute osseous abnormality of the left elbow D/ / Jean Marie Dinero / Jean Marie Dinero Interpreting Provider: Jean Marie Dinero Videofluoroscopic Swallow 06/01/18 14:00 IMPRESSION: No aspiration or penetration was identified. There is prominence of the cricopharyngeal muscle along the posterior aspect of the proximal cervical esophagus causing esophageal narrowing. Please see separate speech pathology report for full discussion of findings and recommendations. D/ / Greg Mora MD / Greg Mora MD Interpreting Provider: Greg Mora MD - Attending Attestation I have personally performed a face to face evaluation on this patient. I have reviewed and agree with the care plan. History and Exam by me shows: Pt seen, no abd pain . O/E Abd soft . A: Pt with dysphagia with abn CT of lower esophagus. Rec: EGD with poss dilation. Spoke with Dr Gaviria , no immediate w/u for elevated troponin.
[2018-06-01] MEDS: Aspirin Enteric Coated 81 MG Tablet PO SCH (11:17)
[2018-06-01] MEDS: Acetaminophen 325 MG TABLET PO PRN (11:17)
--- NOTE | 2018-06-01 16:02 | Internal Med Progress Note ---
Hospitalist Progress Note - Encounter Date of Encounter: 06/01/18 Time of Encounter: 09:00 - Subjective Interval History: Pt feels better, denies dizziness, nausea, or vomiting. Chronic cough about the same. No sob/cp. - Exam Vitals: Temp Pulse Resp BP Pulse Ox 97.6 F 75 18 171/94 94 06/01/18 06:47 06/01/18 15:42 06/01/18 15:42 06/01/18 15:42 06/01/18 15:42 Exam: AAO x 3, in NAD HEENT: NC/AT, PERRL Neck: Supple, no JVD Lungs: CTA b/l, scattered wheezes b/l Heart: S1S2, RRR Abd: Soft, NT, BS normal Ext: No pedal edema Neuro: AAO x 3, no focal deficit. - Assessment and Plan (1) Aspiration pneumonia Current Visit: Yes Status: Acute Assessment and Plan: CT shows chronic aspiration pneumonia. Possibly due to dysphagia. - Change to regular diet per swallow evaluation.. - Her aspiration pneumonia is chronic, has recent admission to [facility], will cont her discharge abx minocyclin po to finish the scheduled dose. Symptomatic treatment for wheezing and cough. (2) Dysphagia Current Visit: Yes Status: Acute Assessment and Plan: Pt may have esophageal stenosis. GI consult appreciated, will follow recommendations. (3) Near syncope Current Visit: Yes Status: Acute Assessment and Plan: Pt has near syncope with low BP. CT chest suspect PAH. - Cont cardiac monitoring. - Will obtain echofrom [facility], duplex carotid - Orthostatic vitals - Gradually start HTN med, on low dose Coreg now, hydralazine iv PRN. (4) CKD (chronic kidney disease) Current Visit: Yes Status: Acute Assessment and Plan: No old chart to show the baseline. Improved renal function. Cont IVF (decrease rate as diet resumed). Avoid nephrotoxic medications, closely monitor renal function. (5) Elevated lactic acid level Current Visit: Yes Status: Acute Assessment and Plan: Resolved (6) COPD (chronic obstructive pulmonary disease) Current Visit: Yes Status: Acute Assessment and Plan: CT chest shows COPD, pt denies hx of COPD, long time smoker. - Has trace wheezes. - Cont Duoneb scheduled and PRN (7) Elevated troponin Current Visit: Yes Status: Acute Assessment and Plan: Denies chest pain, has CKD, possibly demend ischemia. - Cont cardiac monitoring. - 3 sets of troponin 0.19-0.16-0.13 - Appreciate cardio consult. (8) Pulmonary artery hypertension Current Visit: Yes Status: Acute Assessment and Plan: Per CT chest, will obtain recent Echo from [facility]. (9) Traumatic compression fracture of T8 thoracic vertebra Current Visit: Yes Status: Acute Assessment and Plan: Pt denies significant pain, ortho/spinal surgery on case. (10) Tobacco abuse Current Visit: Yes Status: Acute Assessment and Plan: Smoking cessation education done. Pt refuse nicotine patch. (11) DVT prophylaxis Current Visit: Yes Status: Acute Assessment and Plan: Heparin SC (12) Fall Current Visit: Yes Status: Acute Assessment and Plan: Seems due to near syncope. - Syncope workup as above - CT head and neck negative - Has old left arm fracture and was treated by Dr Reese as outpatient, XR repeated, will consult Dr Reese to see if there is any changes. - Time Spent with Patient Total time spent is greater than 50% in coordination of care (as documented) at patient's floor/unit and/or counseling patient: 30 min 25 - 35 minutes Plan of Care Discussed with: patient Internal Medicine: Result - Labs CBC & Chem 7: 06/01/18 01:11 06/01/18 01:11 Labs: Short CBC 06/01/18 Range/Units 01:11 WBC 6.9 (4.3-11.1) K/mcL Hgb 10.5 L (11.5-15.4) g/dL Hct 32.1 L (35.3-44.9) % Plt Count 324 (140-400) K/mcL Neutrophils # 6.0 (1.6-8.9) K/mcL BMP 06/01/18 01:11 Sodium 135 L Potassium 3.6 Chloride 100 Carbon Dioxide 26 BUN 18 Creatinine 1.38 H Glucose 127 H Calcium 8.3 L Cardiac Enzymes 05/31/18 06/01/18 Range/Units 19:22 01:11 Troponin I 0.16 H* 0.13 H* (< 0.04) ng/mL Liver Function 06/01/18 Range/Units 01:11 Total Bilirubin 0.3 (0.3-1.0) mg/dL AST 15 (13-39) Units/L ALT 7 (7-52) Units/L Alkaline Phosphatase 114 H (34-104) Units/L Albumin 3.3 L (3.5-5.7) g/dL - Impressions Impressions Cervical Spine CT 05/31/18 18:16 IMPRESSION: No acute intracranial abnormality. No acute cervical spine fracture D/ / Jean Marie Dinero / Jean Marie Dinero Interpreting Provider: Jean Marie Dinero Elbow X-Ray 05/31/18 18:16 IMPRESSION: Left proximal humerus fracture with separation of fracture fragments No acute osseous abnormality of the left elbow D/ / Jean Marie Dinero / Jean Marie Dinero Interpreting Provider: Jean Marie Dinero Head CT 05/31/18 18:16 IMPRESSION: No acute intracranial abnormality. No acute cervical spine fracture D/ / Jean Marie Dinero / Jean Marie Dinero Interpreting Provider: Jean Marie Dinero Humerus X-Ray 05/31/18 18:16 IMPRESSION: Left proximal humerus fracture with separation of fracture fragments No acute osseous abnormality of the left elbow D/ / Jean Marie Dinero / Jean Marie Dinero Interpreting Provider: Jean Marie Dinero Videofluoroscopic Swallow 06/01/18 14:00 IMPRESSION: No aspiration or penetration was identified. There is prominence of the cricopharyngeal muscle along the posterior aspect of the proximal cervical esophagus causing esophageal narrowing. Please see separate speech pathology report for full discussion of findings and recommendations. D/ / Greg Mora MD / Greg Mora MD Interpreting Provider: Greg Mora MD Consult Discharge Plan - Plan Referrals: Louie Gray MD [Primary Care Provider] - (1) Aspiration pneumonia Qualifiers: Aspiration pneumonia type: unspecified Laterality: bilateral Lung location: unspecified part of lung Qualified Code(s): J69.0 - Pneumonitis due to inhalation of food and vomit (2) Dysphagia Qualifiers: Dysphagia type: esophageal phase Qualified Code(s): R13.10 - Dysphagia, unspecified (4) CKD (chronic kidney disease) Qualifiers: Chronic kidney disease stage: stage 3 (moderate) Qualified Code(s): N18.3 - Chronic kidney disease, stage 3 (moderate) (6) COPD (chronic obstructive pulmonary disease) Qualifiers: COPD type: emphysema Emphysema type: unspecified Qualified Code(s): J43.9 - Emphysema, unspecified (9) Traumatic compression fracture of T8 thoracic vertebra Qualifiers: Encounter type: initial encounter Fracture type: closed Qualified Code(s): S22.060A - Wedge compression fracture of T7-T8 vertebra, initial encounter for closed fracture (12) Fall Qualifiers: Encounter type: initial encounter Qualified Code(s): W19.XXXA - Unspecified fall, initial encounter
[2018-06-01] MEDS ORDERED: 0.9 % Sodium Chloride 1,000 ML IVC SCH (16:10)
--- NOTE | 2018-06-01 20:50 | Orthopedic Consult Note ---
Date of Encounter: 06/01/18 Time of Encounter: 20:44 History of Present Illness Chief complaint: Left shoulder pain HPI: Ms. Tierney is a 77 year old gioly-sdee-oxdqfoxm female who I had seen and treated on April [id number] for a left proximal humerus fracture that had occurred in a fall on April 16. The patient was noted to have a nondisplaced proximal humeral metadiaphyseal fracture. She was treated with a sling and conservative measures. The patient was seen in follow-up on 05/15/2018. At that time recheck x-rays revealed some further comminution and mild offset of the fracture fragment but excellent new bone formation and healing. The patient was scheduled to see me in the office today, unfortunately she fell again yesterday and reinjured her left shoulder area. She had x-rays taken and fracture was noted. Question of whether this was an old or new injury was entertained. The patient was feeling much better prior to the fall. She has had increased pain and swelling since the injury of about 36 hours ago. I reviewed the patient's completed medical record as well as evaluating her history and physical examination. Pertinent orthopedic examination reveals the left upper extremity in a sling. There is acute swelling about the left shoulder with palpable fracture crepitance. I was able to, in essence, reduce the fracture. Neurovascular exam is grossly intact. Recheck x-rays today reveal a offset fracture of the proximal metadiaphyseal region of the left humerus. This is in comparison to an x-ray from 05/15/18, that revealed a healing fracture with some offset. Impression: Re-fracture left proximal humeral shaft fracture Recommendation: In light of the patient's underlying medical conditions and initial success with nonoperative management, would continue a nonoperative course. This is a patient's nondominant hand and with multiple underlying medical conditions were try to avoid any surgical intervention. The patient understands and agrees with this care plan. Would continue with the sling and instructed her on allowing the arm to settle down into the sling and avoid any significant attempts at motion at this time. We will need to follow up with me in the office in about 2 weeks' time for recheck including x-rays, would need follow-up sooner if problems arise. Thank you for allowing me to see and continue to care for Mrs. Tierney. Sincerely, Bridger Reese,DO Past Med Surg Social Fam HX - Past Medical History Medical history: hypertension Additional medical history: Diverticulitis, dysphagia Psychiatric history: no psych history - Past Surgical History Surgical History: cholecystectomy, hysterectomy Additional surgical history: back surgery x3 - Social History Smoking Status: Current every day smoker Packs per day: 1.5 Alcohol use: none Drug use: none - Family History Mother History Unknown: Yes Living Status: Age at : 80 Cause of : CHF Hx Family Cardiac Disorders: Yes (CHF) Father History Unknown: Yes Living Status: Age at : 73 Cause of : CVA Medications and Allergies Amitriptyline [Elavil] 50 mg PO BID 06/01/18 [History] Carvedilol [Coreg] 12.5 mg PO BID 06/01/18 [History] Ferrous Sulfate 325 mg PO BID 06/01/18 [History] Furosemide [Lasix] 40 mg PO DAILY 06/01/18 [History] Gabapentin [Neurontin] 300 mg PO TID 06/01/18 [History] Minocycline HCl 100 mg PO DAILY 06/01/18 [History] Tamsulosin [Flomax] 0.4 mg PO DAILY 06/01/18 [History] Tramadol HCl [Ultram] 50 mg PO BID PRN 06/01/18 [History] diazePAM [Valium] 5 - 10 mg PO TID PRN 06/01/18 [History] Allergy/AdvReac Type Severity Reaction Status Date / Time No Known Allergies Allergy Verified 05/31/18 12:20 All Systems Reviewed: The remainder of the systems were reviewed and are negative Physical Exam - Constitutional Vitals: Temp Pulse Resp BP Pulse Ox 98.7 F 98 18 156/88 95 06/01/18 20:24 06/01/18 20:24 06/01/18 20:24 06/01/18 20:24 06/01/18 20:24 General appearance IM: cooperative, A&O X 3, no acute distress, answers questions appropriately Results - Labs Result Diagrams: 06/01/18 01:11 06/01/18 01:11 Labs: Abnormal lab results RBC 3.12 M/mcL (3.82-4.97) L 06/01/18 01:11 Hgb 10.5 g/dL (11.5-15.4) L 06/01/18 01:11 Hct 32.1 % (35.3-44.9) L 06/01/18 01:11 MCV 102.9 fL (83.0-100.0) H 06/01/18 01:11 MCH 33.7 pg (28.0-33.3) H 06/01/18 01:11 MPV 8.8 fL (9.4-12.4) L 06/01/18 01:11 Sodium 135 mEq/L (136-145) L 06/01/18 01:11 Creatinine 1.38 mg/dL (0.60-1.20) H 06/01/18 01:11 Est GFR ( Amer) 45 (> 60) L 06/01/18 01:11 Est GFR (Non-Af Amer) 37 (> 60) L 06/01/18 01:11 Glucose 127 mg/dL (70-105) H 06/01/18 01:11 POC Glucose 155 mg/dL (70-99) H 06/01/18 05:44 Calcium 8.3 mg/dL (8.6-10.3) L 06/01/18 01:11 Alkaline Phosphatase 114 Units/L (34-104) H 06/01/18 01:11 Troponin I 0.13 ng/mL (< 0.04) H* 06/01/18 01:11 B-Natriuretic Peptide 921 pg/mL (Less than 100) H 06/01/18 01:11 Serum Total Protein 6.0 g/dL (6.4-8.9) L 06/01/18 01:11 Albumin 3.3 g/dL (3.5-5.7) L 06/01/18 01:11 HDL Cholesterol 29 mg/dL (40-59) L 06/01/18 01:11 H & H 06/01/18 Range/Units 01:11 Hgb 10.5 L (11.5-15.4) g/dL Hct 32.1 L (35.3-44.9) % All other labs normal. - Diagnostic results Shoulder x-ray: image reviewed Consult Discharge Plan - Plan Referrals: Louie Gray MD [Primary Care Provider] -
[2018-06-02] MEDS ORDERED: traMADol 50 MG TABLET PO ONE ×3 (00:46→06:15)
[2018-06-02] MEDS: Ipratropium/Albuterol Neb 3 ML IH SCH ×4 (04:37→21:33)
[2018-06-02] MEDS: *HR* Heparin 5,000 UNIT/ML VIAL SQ SCH ×2 (05:20→17:40)
[2018-06-02 05:25] LABS: Basophils % 0.2 %; Eosinophils # 0.1 K/mcL (0.0-0.6); Eosinophils % 0.6 %; Hematocrit 30.3 % (35.3-44.9); Hemoglobin 9.8 g/dL (11.5-15.4); Immature Granulocytes % 0.5 % (0-4); Lymphocytes # 1.1 K/mcL (0.6-4.6); Lymphocytes % 12.2 %; Mean Corpuscular HGB Conc 32.3 g/dL (31.6-35.5); Mean Corpuscular Hemoglobin 33.3 pg (28.0-33.3); Mean Corpuscular Volume 103.1 fL (83.0-100.0); Monocytes # 0.6 K/mcL (0.0-1.3); Monocytes % 6.7 %; Neutrophils # 7.4 K/mcL (1.6-8.9); Platelet Count 328 K/mcL (140-400); Red Blood Count 2.94 M/mcL (3.82-4.97); Red Cell Distribution Width 14.6 % (11.5-14.5); Segmented Neutrophils % 79.8 %
[2018-06-02 05:29] LABS: BUN/Creatinine Ratio 16 (6-26); Blood Urea Nitrogen 13 mg/dL (8-23); Calcium 7.9 mg/dL (8.6-10.3); Carbon Dioxide 26 mEq/L (23-29); Chloride 107 mEq/L (98-107); Glucose 90 mg/dL (70-105); Osmolality,Calculated 290 (280-300); Potassium 3.5 mEq/L (3.5-5.1); Sodium 140 mEq/L (136-145); eGFR For Non-African Americans > 60 (> 60)
[2018-06-02 06:47] LABS: Platelet Estimate Normal (Normal)
[2018-06-02] MEDS: Aspirin Enteric Coated 81 MG Tablet PO SCH (07:57)
[2018-06-02] MEDS: Acetaminophen 325 MG TABLET PO PRN (08:03)
--- NOTE | 2018-06-02 10:04 | Internal Med Progress Note ---
Hospitalist Progress Note - Encounter Date of Encounter: 06/02/18 Time of Encounter: 10:02 - Subjective Interval History: Patient seen and evaluated at bedside, reports that she is feeling better today than yesterday night. Denies lightheadedness, nausea, vomiting or shortness of breath. The patient reports that she has fallen multiple times, but she reports that in those occasion she has not have lightheadedness, dizziness or sensation of the room is spinning around before the falls. She also denies loss of consciousness during dose of episodes. - Exam Vitals: Temp Pulse Resp BP Pulse Ox 98.3 F 103 18 220/115 97 06/02/18 07:15 06/02/18 07:15 06/02/18 07:15 06/02/18 07:15 06/02/18 04:47 Exam: General: Alert and oriented 4. In mild distress due to dysphagia. Skin: Normal color, no rash, no lesions. HEENT: EOM, pupils equal, round and reactive. Cardiovascular: RRR, Normal S1 & S2, no rubs, murmurs or gallops. Lungs: Clear to auscultation bilaterally, no wheezes or crackles. Abdomen: Soft, non-tender, no rigidity. Extremities: Left upper extremity arm sling Neurological: Normal cognition and motor skills. Rest of the physical exam is non contributory - Assessment and Plan (1) Esophageal stenosis Current Visit: Yes Status: Acute Assessment and Plan: Patient reports that she was told in the past that she has esophageal spasm, but denies being told that she had esophageal stenosis. Plan GI has been consulted. Will follow recommendations. Patient is nothing by mouth PPI 40mg/IV daily (2) Near syncope Current Visit: Yes Status: Resolved Assessment and Plan: Possible due to fluctuation in BP, possible autonomic disfunction? patient with Multiple spinal surgery vs minocycline? Patiend educated about BP monitoring in the outpatient setting. If BP continues to fluctuate, patient would benefit from outpatient neurological evaluation. (3) Traumatic compression fracture of T8 thoracic vertebra Current Visit: Yes Status: Chronic Assessment and Plan: Chest CT: Subtle T6 and moderate T8 vertebral compression fractures which may be acute versus subacute in nature. The T8 body demonstrates 2 mm posterior cortical displacement with no significant canal stenosis. Plan: outpatient f/u (4) Pulmonary artery hypertension Current Visit: Yes Status: Chronic Assessment and Plan: Plan TTE from previous hospital has been requested. Outpatient Pulm consult Will continue to follow cardiology recommendations. (5) COPD (chronic obstructive pulmonary disease) Current Visit: Yes Status: Chronic Assessment and Plan: Not on acute exacerbation. Plan Continue Duo-Nebs Q6RT PRN for wheezing and shortness of breath Incentive spirometry (6) Aspiration pneumonia Current Visit: Yes Status: Chronic Assessment and Plan: Patient recently treated for pneumonia. Signs of acute infection. Patient reports that about a week ago she was started on minocycline by her PCP due having 2 episodes of pneumonia recently Will discontinue minocycline and monitor as patient has been on the antibiotic for 8 days. (7) CKD (chronic kidney disease) Current Visit: Yes Status: Chronic Assessment and Plan: Kidney function back to normal. Avoid nephrotoxic medication (8) Elevated lactic acid level Current Visit: Yes Status: Resolved (9) Tobacco abuse Current Visit: Yes Status: Chronic Assessment and Plan: Patient has been counseled about tobacco cessation. (10) Fall Current Visit: Yes Status: Acute Assessment and Plan: recurrents falls, multi-factorial possible due to orthostatic hypotension when patient BP is in the low 80s as reported per patient's daughter. Pt/OT (11) Closed fracture of left proximal humerus Current Visit: Yes Status: Acute Assessment and Plan: Ortho Evra has been consulted. Recommended no surgical intervention. Patient has a left upper extr sling Pain controlled with tramadol 50mg/PO Q6HR PRN. (12) Hypertension Current Visit: Yes Status: Chronic Assessment and Plan: BP has been fluctuating from 200s to as low as 89 SBP in presentation. Plan: BP is now suboptimally controlled Will increase carvedilol dosege started in Furosemide 20mg/IV BID DVT Prophylaxis: On subcutaneous heparin. - Summary of Assessment and Plan Summary of Assessment and Plan: Patient to remain hospitalized, pending GI evaluation for esophageal stenosis. Plus to optimize blood pressure control. - Time Spent with Patient Total time spent is greater than 50% in coordination of care (as documented) at patient's floor/unit and/or counseling patient: 25 - 35 minutes Plan of Care Discussed with: patient (And the nurse.) Internal Medicine: Result - Labs CBC & Chem 7: 06/02/18 04:37 06/02/18 04:37 Labs: Short CBC 06/02/18 Range/Units 04:37 WBC 9.3 (4.3-11.1) K/mcL Hgb 9.8 L (11.5-15.4) g/dL Hct 30.3 L (35.3-44.9) % Plt Count 328 (140-400) K/mcL Neutrophils # 7.4 (1.6-8.9) K/mcL BMP 06/02/18 04:37 Sodium 140 Potassium 3.5 Chloride 107 Carbon Dioxide 26 BUN 13 Creatinine 0.83 Glucose 90 Calcium 7.9 L - Impressions Impressions Videofluoroscopic Swallow 06/01/18 14:00 IMPRESSION: No aspiration or penetration was identified. There is prominence of the cricopharyngeal muscle along the posterior aspect of the proximal cervical esophagus causing esophageal narrowing. Please see separate speech pathology report for full discussion of findings and recommendations. D/ / Greg Mora MD / Greg Mora MD Interpreting Provider: Greg Mora MD Consult Discharge Plan - Plan Referrals: Louie Gray MD [Primary Care Provider] - (3) Traumatic compression fracture of T8 thoracic vertebra Qualifiers: Encounter type: initial encounter Fracture type: closed Qualified Code(s): S 22.060A - Wedge compression fracture of T7-T8 vertebra, initial encounter for closed fracture (5) COPD (chronic obstructive pulmonary disease) Qualifiers: COPD type: emphysema Emphysema type: unspecified Qualified Code(s): J43.9 - Emphysema, unspecified (6) Aspiration pneumonia Qualifiers: Aspiration pneumonia type: unspecified Laterality: bilateral Lung location: unspecified part of lung Qualified Code(s): J69.0 - Pneumonitis due to inhalation of food and vomit (7) CKD (chronic kidney disease) Qualifiers: Chronic kidney disease stage: stage 3 (moderate) Qualified Code(s): N18.3 - Chronic kidney disease, stage 3 (moderate) (10) Fall Qualifiers: Encounter type: initial encounter Qualified Code(s): W19.XXXA - Unspecified fall, initial encounter (11) Closed fracture of left proximal humerus Qualifiers: Encounter type: sequela Fracture alignment: nondisplaced (12) Hypertension Qualifiers: Hypertension type: unspecified Qualified Code(s): I10 - Essential (primary) hypertension
[2018-06-02] MEDS ORDERED: D5% in 0.45% NACL 1,000 ML IVC SCH (10:45)
[2018-06-02] MEDS: Pantoprazole 40 MG VIAL IVP SCH (11:24)
--- NOTE | 2018-06-02 11:35 | Cardiology Progress Note ---
Date of Encounter: 06/02/18 Time of Encounter: 10:45 Assessment and Plan (1) Elevated troponin Current Visit: Yes Status: Resolved Mildly elevated troponin in the setting of near syncope, DELMIS on CKD. Do not suspect ACS. No chest pain. Reports recent normal stress test at [place]. States [facility] several years ago was normal. Continue BB, asa. Awaiting TTE, stress records. (2) Near syncope Current Visit: Yes Status: Resolved Multiple episodes of near syncope with falls over the past 6-8 weeks. Etiology unclear. Reports initial episode occurred with severely elevated HTN, now with hypotension. BP reportedly 66/57 prior to presentation, initial BP in ED 89/60. Slowly restarting antihypertensives. CT Chest: esophageal stricture vs. dysmotility; mild COPD, chronic bronchitis, severe PAH, and acute vs. subacute vertebral fx. No arrhythmias noted on telemetry since admission. Blood pressure now elevated; of note, recent medication change (atenolol--->coreg) at [facility]. Increase carvedilol as you are doing. Obtain records from [place] including TTE, NST, d/c summary. (3) Hypertension Current Visit: Yes Status: Chronic Qualifiers: Hypertension type: essential hypertension Qualified Code(s): I10 - Essential (primary) hypertension Discussion w patient/family: The assessment and plan as outlined above was discussed with the patient and/or family members who expressed understanding and agreement. All questions were answered. Thank you for involving us in the care of your patient. Please call with any questions. Subjective Principal diagnosis: pre-syncope, HTN uncontrolled Interval history: Ms. Tierney is resting in bed. Denies recurrent presyncopal symptoms ambulating in his room. Objective Vital Signs, Last 4 Hours Resp Pulse Ox 06/02/18 10:28 18 97 General: Conversant, No Apparent Distress HEENT: Atraumatic, Normocephaly, Mucus Membranes Moist Neck: No JVD, Normal carotid pulses Cardiac: Reg Rate and Rhythm, Normal S1 and S2, No Murmur, Other (systolic murmur) Lungs: Normal Breath Sounds, No Wheeze, Rales, Rhonchi Neuro: Alert and responsive, No focal deficits noted Abdomen: Soft, Non-Tender Skin: No rashes noted on visualized skin Musculoskeletal: No Chest Wall Tenderness Extremities: No Clubbing, No Cyanosis, No Edema, Normal Pulses Results 06/02/18 04:37 06/02/18 04:37 Lab Results 06/01/18 06/02/18 06/02/18 13:01 04:37 04:37 WBC 9.3 Hgb 9.8 L Hct 30.3 L Plt Count 328 Sodium 140 Potassium 3.5 Chloride 107 Carbon Dioxide 26 BUN 13 Creatinine 0.83 Glucose 90 Calcium 7.9 L TSH 1.101 - Imaging and Cardiology Echo: other - EKG Interpretation EKG results cardiology: personally reviewed Consult Discharge Plan - Plan Referrals: Louie Gray MD [Primary Care Provider] -
--- NOTE | 2018-06-02 12:04 | Anesthesia Evaluation PreOp ---
Date of Encounter: 06/02/18 Time of Encounter: 12:01 - Past History Planned Operation: EGD Cardiac History: HTN Pulmonary History: Smoker, Pack/yr (1.5 ppd) [employer]PA[employer] History: Denies Any Significant HX Other Medical History: Other (dysphagia) Anesthesia History: No Prior Anesthetic Complications, Past Anesthesia ( cholecystectomy, hysterectomy, back sx x 3) : No Alcohol Use: none Drug use: none Medications and Allergies Amitriptyline [Elavil] 50 mg PO BID 06/01/18 [History] Carvedilol [Coreg] 12.5 mg PO BID 06/01/18 [History] Ferrous Sulfate 325 mg PO BID 06/01/18 [History] Furosemide [Lasix] 40 mg PO DAILY 06/01/18 [History] Gabapentin [Neurontin] 300 mg PO TID 06/01/18 [History] Minocycline HCl 100 mg PO DAILY 06/01/18 [History] Tamsulosin [Flomax] 0.4 mg PO DAILY 06/01/18 [History] Tramadol HCl [Ultram] 50 mg PO BID PRN 06/01/18 [History] diazePAM [Valium] 5 - 10 mg PO TID PRN 06/01/18 [History] Allergy/AdvReac Type Severity Reaction Status Date / Time No Known Allergies Allergy Verified 05/31/18 12:20 - Meds/Allergy Pre-op Review Medications Reviewed: Yes Allergies Reviewed: Yes Beta Blockers on Current Med List: Yes Anesthesia Results - Labs 06/02/18 04:37 06/02/18 04:37 Anesthesia Exam O2 Sat Weight 58 kg O2 Sat by Pulse Oximetry 96 O2 Sat by Pulse Oximetry 97 O2 Sat by Pulse Oximetry 97 O2 Sat by Pulse Oximetry 97 O2 Sat by Pulse Oximetry 100 O2 Sat by Pulse Oximetry 95 O2 Sat by Pulse Oximetry 94 O2 Sat by Pulse Oximetry 94 Vital Signs Temp Resp BP 97.7 F 18 89/60 05/31/18 12:14 05/31/18 12:14 05/31/18 12:14 Vital Signs/O2 Sat, Most Current Temp Pulse Resp BP Pulse Ox 98.3 F 101 18 180/101 96 06/02/18 11:56 06/02/18 11:56 06/02/18 10:28 06/02/18 11:56 06/02/18 11:56 NPO (# of Hours): > 8 hrs Pain Scale: 0 Pain Scale Used: Numeric (1 - 10) Anesthesia Assess/Plan ASA Score: 3 Modified [place] Scale for Level of Consciousness: Cooperative, oriented, and tranquil Anesthetic Plan: MAC Autologous Blood: Yes Monitoring Plan: Standard Monitors Recovery Plan: Other
[2018-06-02] MEDS ORDERED: *HR* Propofol 200 MG/20 ML VIAL IVP ONE (12:58)
[2018-06-02] MEDS ORDERED: *HR* Metoprolol 5 MG/5 ML VIAL IVP ONE (13:34)
--- NOTE | 2018-06-02 16:17 | Event Note ---
Date of Encounter: 06/02/18 Time of Encounter: 15:45 - Cardiology Event Note Discussed and reviewed with Dr. Gaviria, cardiology will sign off, EGD pending, follow-up with her primary mycologist.
[2018-06-02] MEDS: Furosemide 20 MG TABLET PO SCH (17:40)
[2018-06-02] MEDS: traMADol 50 MG TABLET PO PRN (20:02)
[2018-06-03] MEDS: traMADol 50 MG TABLET PO PRN (01:18)
[2018-06-03] MEDS: Ipratropium/Albuterol Neb 3 ML IH SCH ×2 (03:27→11:04)
[2018-06-03] MEDS: Acetaminophen 325 MG TABLET PO PRN (03:44)
[2018-06-03] MEDS: *HR* Heparin 5,000 UNIT/ML VIAL SQ SCH (06:14)
[2018-06-03] MEDS: Furosemide 20 MG TABLET PO SCH (06:15)
[2018-06-03] MEDS ORDERED: traMADol 50 MG TABLET PO PRN (06:35)
[2018-06-03 07:18] VITALS: BP 141/85
[2018-06-03] MEDS: Aspirin Enteric Coated 81 MG Tablet PO SCH (08:18)
[2018-06-03] MEDS: Pantoprazole 40 MG VIAL IVP SCH (08:18)
--- NOTE | 2018-06-03 10:01 | Discharge Summary ---
- NOTES TO OUTPATIENT PROVIDER Notes to Outpatient Provider: Follow-up with your warehouse assembly worker within 1-2 weeks of hospital discharge. Orders not resulted at time of discharge: Pending orders 05/31/18 14:22 Culture,Blood [BC] Stat 06/02/18 14:11 Surgical Pathology [PTH] Routine Date of Encounter: 06/03/18 Time of Encounter: 09:59 - Discharge Diagnosis (1) Near syncope Priority: Primary Status: Resolved (2) Traumatic compression fracture of T8 thoracic vertebra Priority: Secondary Status: Chronic Qualifiers: Encounter type: initial encounter Fracture type: closed Qualified Code(s): S22.060A - Wedge compression fracture of T7-T8 vertebra, initial encounter for closed fracture (3) Pulmonary artery hypertension Priority: Secondary Status: Chronic (4) COPD (chronic obstructive pulmonary disease) Priority: Secondary Status: Chronic Qualifiers: COPD type: emphysema Emphysema type: unspecified Qualified Code(s): J43.9 - Emphysema, unspecified (5) Aspiration pneumonia Priority: Secondary Status: Chronic Qualifiers: Aspiration pneumonia type: unspecified Laterality: bilateral Lung location: unspecified part of lung Qualified Code(s): J69.0 - Pneumonitis due to inhalation of food and vomit (6) CKD (chronic kidney disease) Priority: Secondary Status: Chronic Qualifiers: Chronic kidney disease stage: stage 3 (moderate) Qualified Code(s): N18.3 - Chronic kidney disease, stage 3 (moderate) (7) Elevated lactic acid level Priority: Secondary Status: Resolved (8) Tobacco abuse Priority: Secondary Status: Chronic (9) Fall Priority: Secondary Status: Acute Qualifiers: Encounter type: initial encounter Qualified Code(s): W19.XXXA - Unspecified fall, initial encounter (10) Closed fracture of left proximal humerus Priority: Secondary Status: Acute Qualifiers: Encounter type: sequela Fracture alignment: nondisplaced Qualified Code(s): S42.295S - Other nondisplaced fracture of upper end of left humerus, sequela (11) Hypertension Priority: Secondary Status: Chronic Qualifiers: Hypertension type: essential hypertension Qualified Code(s): I10 - Essential (primary) hypertension (12) Dysphagia Priority: Secondary Status: Acute Assessment and Plan: status post EGD: normal esophagus. Gastric mucosal atrophy. Qualifiers: Dysphagia type: unspecified Qualified Code(s): R13.10 - Dysphagia, unspecified Hospital course: Ms. Tierney is a 77 year old female past medical history of anxiety, hypertension, tobacco abuse, COPD. Patient presented to the emergency room after sustaining a fall. Patient's daughter reported that her BP has been fluctuating from 200s SBP for the lows 66s. Patient admitted to the hospital due to near syncope and fall. A head CT was done, did not show any abnormality. A CT of the cervical spine: No acute intracranial abnormality. Chest CT: Indeterminate 3 mm ground-glass nodule of the right upper lobe, see recommendations. 6. Subtle T6 and moderate T8 vertebral compression fractures which may be acute versus subacute in nature. The T8 body demonstrates 2 mm posterior cortical displacement with no significant canal stenosis. Patient recently diagnosed with a left proximal humerus fracture, in this occasion a new fracture at the same extremity was diagnosed, Ortho consulted recommended no intervention and to continue with the sling. Due to patient complaining of difficulty swallowing, a barrium swallow eval was done which reported possible esophageal stenosis. GI consulted, patient underwent EGD: which showed: Normal esophagus, gastric mucosal atrophy, and normal examined duodenum. Cardiology consulted due to patient presentation of near syncope and a Hx of Pulm HTN. They evaluated the patient and recommended outpatient f/u. Patient's acute problems have resolved. Patient is hemodynamically stable to be discharge home. - Time Spent with Patient Total time spent providing and/or coordinating discharge services: Greater than 30 minutes (35) - Discharge Medications Home Medications: Amitriptyline [Elavil] 50 mg PO BID 06/01/18 [History] Carvedilol [Coreg] 12.5 mg PO BID 06/01/18 [History] Ferrous Sulfate 325 mg PO BID 06/01/18 [History] Furosemide [Lasix] 40 mg PO DAILY 06/01/18 [History] Gabapentin [Neurontin] 300 mg PO TID 06/01/18 [History] Tamsulosin [Flomax] 0.4 mg PO DAILY 06/01/18 [History] Tramadol HCl [Ultram] 50 mg PO BID PRN 06/01/18 [History] diazePAM [Valium] 5 - 10 mg PO TID PRN 06/01/18 [History] Allergies/Adverse Reactions: Allergy/AdvReac Type Severity Reaction Status Date / Time No Known Allergies Allergy Verified 05/31/18 12:20 Date of admission: 06/01/18 14:30 Primary care physician: Louie Gray MD Consults: 05/31/18 16:43 Consult to Gastroenterology [CONS] Routine Consulting Provider: Gastroenterology Marlene Reason for Consult: dysphasia Call Completed: No 05/31/18 16:49 Consult to Cardiology [CONS] Routine Comment: Consulting Provider: Cardiology Marlene Reason for Consult: elevated troponin Call Completed: No 05/31/18 17:10 Consult to Orthopedic Surgery [CONS] Routine Consulting Provider: [facility] Reason for Consult: T6 and T8 compression fractrure, Dr Ramachandran was called Call Completed: Yes 05/31/18 19:04 Consult to Pumper Gauger [CONS] Routine Reason for SW Consult: Multiple falls, multiple readmissions to hospital within the past 1-2 months. 06/01/18 13:43 Consult to Orthopedic Surgery [CONS] Routine Consulting Provider: Orthopedic and Sports Medicine Reason for Consult: Left arm fracture, saw Dr Reese previously Call Completed: Yes 06/02/18 15:02 Consult to Physical Therapy [CONS] Routine Comment: Evaluate, develop and implement POC Reason for Consult: Multiple/recurrent falls at home with resulting fractures Does patient have active BEDREST order?: No Is patient medically & hemodynamically stable?: Yes Patient assessed for mobility or mobilized this visit?: Yes - Constitutional Vitals: Temp Pulse Resp BP Pulse Ox 98.3 F 98 18 141/85 96 06/03/18 07:16 06/03/18 07:16 06/03/18 07:16 06/03/18 07:16 06/03/18 07:16 General appearance: Present: A&O X 3, no acute distress, answers questions appropriately Exam: General: Alert and oriented 4. No distress. Skin: Normal color, no rash, no lesions. HEENT: EOM, pupils equal, round and reactive. Cardiovascular: RRR, Normal S1 & S2, no rubs, or gallops, 3/6 systolic murmur best heard in the right subclavian area. Lungs: Clear to auscultation bilaterally, no wheezes or crackles. Abdomen: Soft, non-tender, no rigidity. Extremities: Left upper extremity arm sling Neurological: Normal cognition and motor skills. Rest of the physical exam is non contributory - Patient Status Disposition: Home Health Service Condition: Good Functional capacity at discharge: independent ambulation Overall status at discharge: patient is back to baseline - Discharge Instructions Follow Up With: Jamil Ramachandran DO [Partnered Physician] - 06/24/18 8:25 am Louie Gray MD [Primary Care Provider] - 06/09/18 9:15 am - Diet and Activity Activity: as per physical therapy Diet: advance to your usual diet
--- NOTE | 2018-06-03 13:51 | Physician Discharge Referral ---
Home Health/Hosp Referral Info Transfer to: Home Health - Diagnosis (1) Near syncope Priority: Primary Status: Resolved (2) Traumatic compression fracture of T8 thoracic vertebra Priority: Secondary Status: Chronic (3) Pulmonary artery hypertension Priority: Secondary Status: Chronic (4) COPD (chronic obstructive pulmonary disease) Priority: Secondary Status: Chronic (5) Aspiration pneumonia Priority: Secondary Status: Chronic (6) CKD (chronic kidney disease) Priority: Secondary Status: Chronic (7) Elevated lactic acid level Priority: Secondary Status: Resolved (8) Tobacco abuse Priority: Secondary Status: Chronic (9) Fall Priority: Secondary Status: Acute (10) Closed fracture of left proximal humerus Priority: Secondary Status: Acute (11) Hypertension Priority: Secondary Status: Chronic (12) Dysphagia Priority: Secondary Status: Acute - Respiratory Orders Oxygen / L per min (3 litters) Smoking Cessation: Smoking cessation has been advised. For more information, call the [place] Tobacco Quit Line at 5-263-XORO-NOW. - Diet/Nutrition Diet/Nutrition Orders: Regular - Activity Activity Orders: Ambulate - Services Needed Following services are medically necessary services: Nursing, Home Health Aide - Transfer Medications Home Medications: Amitriptyline [Elavil] 50 mg PO BID 06/01/18 [History] Carvedilol [Coreg] 12.5 mg PO BID 06/01/18 [History] Ferrous Sulfate 325 mg PO BID 06/01/18 [History] Furosemide [Lasix] 40 mg PO DAILY 06/01/18 [History] Gabapentin [Neurontin] 300 mg PO TID 06/01/18 [History] Tamsulosin [Flomax] 0.4 mg PO HS 06/01/18 [History] Tramadol HCl [Ultram] 50 mg PO BID PRN 06/01/18 [History] diazePAM [Valium] 5 - 10 mg PO TID PRN 06/01/18 [History] Allergies/Adverse Reactions: Allergy/AdvReac Type Severity Reaction Status Date / Time No Known Allergies Allergy Verified 05/31/18 12:20 Certification: Further, I certify that my clinical findings support that this patient is homebound (i.e. absences from home require considerable and taxing effort and are for medical reasons or muslim services or infrequently or short duration when for other reasons) because: Homebound Reason: Patient requires assistance of a person or device to safely leave home Attestation: My signature below is to certify that this patient is under my care and that I, or nurse practitioner, or a physician's hotel assistant general manager working with me, has a face -to-face encounter with this patient.
--- NOTE | 2018-06-05 18:45 | Electrocardiograph Report ---
[address] [place], [place] [address] Test Date: 2018-05-31 Pat Name: Bertha Tierney Department: EXAM10 Room: [id number] Gender: F Electrician Supervisor: : 1940 Requested By: Humble Felder Order Number: [id number] Reading MD: Silvestre Steven Measurements Intervals [place] Rate: 88 P: 65 ND: 191 QRS: 113 QRSD: 107 T: -15 QT: 390 QTc: 472 Interpretive Statements Sinus rhythm Left posterior fascicular block Electronically Signed On 06-05-2018 18:44:24 EDT by Silvestre Steven
== END 2018-06-03 15:49 | disposition home health service (06) | DRG 178 ==
LOC: EMEROOARM 12:12 → 2NENU 12:12 → SUATTDRO 06-01 14:30
PROVIDERS: ADMIT Internal Medicine; ATTEND Internal Medicine
PROC: ENDOEBX (2018-06-02 13:00)